=== PATIENT | male | born 1995 | race Caucasian/White ===

== ENCOUNTER 2023-07-18 14:23 | Emergency (ER) | payer MEDICAID ==
[~2023-07-18] VITALS: Ht 188 cm; Wt 89.0 kg
[2023-07-18 14:51] VITALS: BP 135/67; PULSE 65; RESP 16; TEMP 98.8; O2SAT 100
[2023-07-18] MEDS ORDERED: BO1 TP (18:48)
[2023-07-18] MEDS ORDERED: NAPR-681 MT (18:48)
== END 2023-07-18 18:57 | disposition home or self-care (01) ==
LOC: ER 15:54
DX: S70.11XA Contusion of right thigh, initial encounter (principal); S70.311A Abrasion, right thigh, initial encounter; S00.81XA Abrasion of other part of head, initial encounter; W18.39XA Other fall on same level, initial encounter; Y93.89 Activity, other specified; Y92.89 Other specified places as the place of occurrence of the external cause; Y99.8 Other external cause status
CPT/HCPCS: 99282